=== PATIENT | female | born 1995 | race Two or more races ===

== ENCOUNTER → 2025-04-13 | Outpatient (CLI) | payer MEDICAID, SELFPAY ==
--- NOTE | 2025-04-13 13:54 | XR_ITS ---
Examination: OB Transvaginal ultrasound of the pelvis, complete Technique: Transvaginal sonographic images pelvis performed using colon scale imaging Exam date and time: April 13, 2025, 1421 hours INDICATIONS: Clinical diagnosis threatened , early by history. Pelvic pain. FINDINGS: Uterus 10.6 cm CRL 1.0 cm corresponds to 7 week 0 day gestational age Cardiac motion 137 BPM Subchorionic hemorrhage 29 x 30 mm Right ovary 3.0 cm arterial flow small follicles Left ovary 2.5 cm arterial flow IMPRESSION: Viable intrauterine gestation 7 weeks 0 days, recommend short-term follow-up given the adjacent subchorionic hemorrhage. .
== END | disposition home or self-care (01) ==
PROVIDERS: Referring Provider Obstetrics & Gynecology; Visit Provider Obstetrics & Gynecology
DX: O20.0 Threatened abortion (principal); Z3A.01 Less than 8 weeks gestation of pregnancy
CPT/HCPCS: 76817